=== PATIENT | female | born 1970 ===

== ENCOUNTER 2016-08-28 09:46 | Inpatient (IN) | payer BC ==
[~2016-08-28] VITALS: Ht 165.1 cm; Wt 59.0 kg
[~2016-08-28 09:46] MED LIST: AMIT75TA PO; OXYC-250 PO; VALIUM10 MG PO
[2016-08-28] MEDS ORDERED: ONDANSETRON PF 4 MG/2 ML VIAL. IV ONE (10:30)
[2016-08-28] MEDS ORDERED: FENTANYL PF 100 MCG/2 ML VIAL. IV PRN (10:30)
--- NOTE | 2016-08-28 10:32 | PHYS DOC ---
Past Medical History Past Medical History: HIV Past Surgical History: Other Additional Past Surgical Histo: esophagus Alcohol Use: None Drug Use: Marijuana Adult General Chief Complaint Chief Complaint: SHORTNESS OF BREATH HPI HPI Patient is a 46 year old female who presents with complaint of fever and cough for 1 week. Patient states her symptoms have progressively worsened during this time. Patient has history of HIV infection currently on antiretroviral therapy. Patient states she follows with Dr. Zacarias for primary care. Patient has not had any recent blood work to check her CD4 counts. Patient states that she has had productive cough of brownish sputum. Patient has been taking [id number] medications to help with her symptoms with no relief. Patient rates her pain currently is 10 out of 10 and states that it is generalized. Patient is concerned that she has pneumonia and contacted her primary physician's office who instructed her to come to the emergency department for further evaluation. Review of Systems Review of Systems Constitutional: Fever, chills, bodyaches [] Eyes: Denies change in visual acuity, redness, or eye pain [] HENT: Sore throat [] Respiratory: Productive cough, shortness of breath [] Cardiovascular: Chest pain [] GI: Nausea, denies vomiting, bloody stools or diarrhea [] : Denies dysuria or hematuria [] Musculoskeletal: Myalgias [] Integument: Denies rash or skin lesions [] Neurologic: Denies headache, focal weakness or sensory changes [] Endocrine: Denies polyuria or polydipsia [] Current Medications Current Medications Current Medications Medications (Trade) Dose Ordered Sig/Amor Start Time Stop Time Status Last Admin Dose Admin Fentanyl Citrate (Fentanyl 2ml Vial) 50 mcg PRN Q15MIN PRN 08/28/16 10:30 08/29/16 10:29 08/28/16 11:55 50 MCG Ondansetron HCl (Zofran) 4 mg 1X ONCE 08/28/16 10:30 08/28/16 10:31 DC 08/28/16 11:53 4 MG Sodium Chloride (Iv Sodium Chloride 0.9% 1000ml Bag) 1,000 ml @ 1,770 mls/hr Q34M 08/28/16 10:30 08/28/16 11:30 DC 08/28/16 13:08 1,770 MLS/HR Allergies Allergies Allergies Coded Allergies Type Severity Reaction Last Updated Verified Penicillins Allergy Intermediate itch 08/28/16 Yes Physical Exam Physical Exam Constitutional: Alert, febrile, appears ill. [] HENT: Normocephalic, atraumatic, bilateral external ears normal, oropharynx dry , erythematous, no oral exudates, nose normal. [] Eyes: PERRLA, EOMI, conjunctiva normal, no discharge. [] Neck: Normal range of motion, no tenderness, supple, no stridor. [] Cardiovascular: Tachycardia, regular rhythm, no murmur [] Lungs & Thorax: Bilateral breath sounds clear to auscultation [] Abdomen: Bowel sounds normal, soft, no tenderness, no masses, no pulsatile masses. [] Skin: Warm, dry, no erythema, no rash. [] Back: No tenderness, no CVA tenderness. [] Extremities: No tenderness, no cyanosis, no clubbing, ROM intact, no edema. [] Neurologic: Alert and oriented X 3, normal motor function, normal sensory function, no focal deficits noted. [] Current Patient Data Vital Signs Vital Signs Date Time Temp Pulse Resp B/P Pulse Ox O2 Delivery O2 Flow Rate FiO2 08/28/16 12:00 96 24 88/50 89 Room Air 08/28/16 09:59 99.2 99.2 Lab Values Laboratory Tests Test 08/28/16 10:12 08/28/16 11:00 Influenza Type A Antigen Negative (NEGATIVE) Influenza Type B Antigen Negative (NEGATIVE) White Blood Count 4.9x10^3/uL (4.0-11.0) Red Blood Count 3.26x10^6/uL (3.50-5.40) L Hemoglobin 10.0g/dL (12.0-15.5) L Hematocrit 29.5% (36.0-47.0) L Mean Corpuscular Volume 90fL (79-100) Mean Corpuscular Hemoglobin 31pg (25-35) Mean Corpuscular Hemoglobin Concent 34g/dL (31-37) Red Cell Distribution Width 13.8% (11.5-14.5) Platelet Count 144x10^3/uL (140-400) Neutrophils (%) (Auto) 86% (31-73) H Lymphocytes (%) (Auto) 6% (24-48) L Monocytes (%) (Auto) 7% (0-9) Eosinophils (%) (Auto) 0% (0-3) Basophils (%) (Auto) 0% (0-3) Neutrophils # (Auto) 4.3x10^3uL (1.8-7.7) Lymphocytes # (Auto) 0.3x10^3/uL (1.0-4.8) L Monocytes # (Auto) 0.4x10^3/uL (0.0-1.1) Eosinophils # (Auto) 0.0x10^3/uL (0.0-0.7) Basophils # (Auto) 0.0x10^3/uL (0.0-0.2) Segmented Neutrophils % 85% (35-66) H Band Neutrophils % 6% (0-9) Lymphocytes % 5% (24-48) L Monocytes % 4% (0-10) Platelet Estimate Adequate (ADEQUATE) Ovalocytes Mod Sodium Level 138mmol/L (136-145) Potassium Level 4.0mmol/L (3.5-5.1) Chloride Level 103mmol/L (98-107) Carbon Dioxide Level 25mmol/L (21-32) Anion Gap 10 (6-14) Blood Urea Nitrogen 13mg/dL (7-20) Creatinine 0.8mg/dL (0.6-1.0) Estimated GFR (Cockcroft-Gault) 76.9 BUN/Creatinine Ratio 16 (6-20) Glucose Level 101mg/dL (70-99) H Lactic Acid Level 0.7mmol/L (0.4-2.0) Calcium Level 8.6mg/dL (8.5-10.1) Total Bilirubin 0.7mg/dL (0.2-1.0) Aspartate Amino Transferase (AST) 31U/L (15-37) Alanine Aminotransferase (ALT) 16U/L (14-59) Alkaline Phosphatase 140U/L (46-116) H Total Protein 6.9g/dL (6.4-8.2) Albumin 2.8g/dL (3.4-5.0) L Albumin/Globulin Ratio 0.7 (1.0-1.7) L Procalcitonin 9.49ng/mL (0.00-0.10) H Laboratory Tests 08/28/16 11:00 Laboratory Tests 08/28/16 11:00 EKG EKG Interpreted by me: Heart rate 103, sinus tachycardia, occasional PVC, no acute ST elevations or depressions [] Radiology/Procedures Radiology/Procedures [facility] [address] [place] [address] IMAGING REPORT Signed PATIENT: ARNOLD DEUTSCH ACCOUNT: [id number] : 1970 LOCATION: ER AGE: 46 SEX: F EXAM STATUS: REG ER ORD. PHYSICIAN: SIOMARA CUEVAS MD REASON: cough, fever PROCEDURE: PORTABLE CHEST 1V Exam: AP chest radiograph History: Cough, fever. Comparison: 07/06/2016. Findings: Cardiomediastinal silhouette is within normal limits for size. Bilateral lung espinoza are free of focal infiltrate. No pleural effusion is seen. Mild accentuation of interstitial markings is similar to previous study. Impression: No acute cardiopulmonary process. DICTATED and SIGNED BY: FERMIN MEDINA MD DATE: 08/28/16 1051 CC: SIOMARA CUEVAS MD; BRAYAN ZACARIAS MD ~ [] Course & Med Decision Making Course & Med Decision Making Pertinent Labs and Imaging studies reviewed. (See chart for details) Patient started on IV fluids. Patient's pro-calcitonin was significantly elevated raising high suspicion for acute bacterial infection and sepsis. The source of patient's infection is not apparent at this time. I consult that Dr. Easton he recommended patient be started on vancomycin, Rocephin, and azithromycin for empiric treatment and agreed follows patient in hospital. I spoke with Dr. Fonseca who was on-call for Dr. Bundy and he accepted care patient in hospital. Dragon Disclaimer Dragon Disclaimer This electronic medical record was generated, in whole or in part, using a voice recognition dictation system. Departure Departure Impression: Primary Impression: Sepsis Additional Impression: HIV infection Disposition: 09 ADMITTED INPATIENT Admitting Physician: Clem Fonseca Condition: GUARDED Referrals: BRAYAN ZACARIAS MD (PCP) Problem Qualifiers Primary Impression: Sepsis Sepsis type: sepsis due to unspecified organism Qualified Code: A41.9 - Sepsis, unspecified organism SIOMARA CUEVAS MD Aug 28, 2016 10:32
--- NOTE | 2016-08-28 10:54 | RAD ---
Exam: AP chest radiograph History: Cough, fever. Comparison: 07/06/2016. Findings: Cardiomediastinal silhouette is within normal limits for size. Bilateral lung espinoza are free of focal infiltrate. No pleural effusion is seen. Mild accentuation of interstitial markings is similar to previous study. Impression: No acute cardiopulmonary process.
[2016-08-28 11:15] LABS: BASO % 0 % (0-3); EOS % 0 % (0-3); HEMATOCRIT 29.5 % (36.0-47.0); LYMPH # 0.3 x10^3/uL (1.0-4.8); LYMPH % 6 % (24-48); MEAN CORPUSCULAR HEMOGLOBIN 31 pg (25-35); MEAN CORPUSCULAR HGB CONC 34 g/dL (31-37); MEAN CORPUSCULAR VOLUME 90 fL (79-100); MONO % 7 % (0-9); NEUT % 86 % (31-73); PLATELET COUNT 144 x10^3/uL (140-400); RED BLOOD COUNT 3.26 x10^6/uL (3.50-5.40); RED CELL DISTRIBUTION WIDTH 13.8 % (11.5-14.5); WHITE BLOOD COUNT 4.9 x10^3/uL (4.0-11.0)
[2016-08-28 11:18] LABS: OBC FLU VALID
[2016-08-28 11:36] LABS: CALCIUM 8.6 mg/dL (8.5-10.1); CREATININE 0.8 mg/dL (0.6-1.0); GFR 76.9
[2016-08-28 11:45] LABS: ALBUMIN 2.8 g/dL (3.4-5.0); ALBUMIN/GLOBULIN RATIO 0.7 (1.0-1.7); TOTAL BILIRUBIN 0.7 mg/dL (0.2-1.0); TOTAL PROTEIN 6.9 g/dL (6.4-8.2)
--- NOTE | 2016-08-28 11:57 | EKG ---
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
[2016-08-28] MEDS: IV NORMAL SALINE 1000ML BAG 1,000 ML IV SCH ×4 (11:59→22:25)
[2016-08-28 12:04] LABS: PROCALCITONIN 9.49 ng/mL (0.00-0.10)
[2016-08-28 12:41] LABS: OVALOCYTES MOD; PLT ESTIMATE ADEQUATE (ADEQUATE)
[2016-08-28] MEDS ORDERED: ONDANSETRON PF 4 MG/2 ML VIAL. IV PRN (12:45)
[2016-08-28] MEDS ORDERED: VANCOMYCIN PER PHARMACY MC PRN (12:45)
[2016-08-28] MEDS ORDERED: ACETAMINOPHEN 325 MG TABLET. PO PRN (12:45)
[2016-08-28] MEDS ORDERED: CEFTRIAXONE 1GM IVPB FOR OMNI 50 ML IV ONE (13:00)
[2016-08-28] MEDS ORDERED: VANCOMYCIN 1.5 GM in IV NORMAL SALINE 500ML BAG 500 ML IV ONE (13:00)
[2016-08-28] MEDS ORDERED: AZITHROMYCIN 500 MG in IV NORMAL SALINE 250ML 250 ML IV SCH (14:00)
--- NOTE | 2016-08-28 15:46 | ACF ---
Admission Forms Criteria SEPSIS and OTHER FEBRILE ILLNESS, W/O FOCAL INFECTION Clinical Indications for Admission to Inpatient Care ( Place 'X' for any and all applicable criteria): Admission is indicated for ANY ONE of the following (1)(2)(3)(4): [ ] I. Bacteremia [X]II. Suspected or identified specific infection requiring hospitalization (eg, meningitis, endocarditis) [ ]III. Hemodynamic instability [ ]IV. Altered mental status [ ]V. Failure or unavailability of outpatient antimicrobial treatment [ ]. Hypoxemia [ ]VII. Seizures [ ]VIII. High-risk febrile neutropenia [ ]IX. Need for parenteral antibiotic in patient who is likely to abuse vascular access device (eg, injection drug user) [A](7) [ ]X. Temperature greater than 104.9 degrees F (40.5 degrees C) (oral) [ ]XI. Inpatient admission required rather than observation care because of ANY ONE of the following: [ ]1) Specific infection identified that is too severe for outpatient treatment or observation care trial [ ]2) Metabolic disorder (eg, hypoglycemia, hyperglycemia, metabolic acidosis) that is severe or persistent [ ]3) Temperature greater than 103.1 degrees F (39.5 degrees C) ( oral) that is not responsive to observation care treatment [ ]4) IV fluid to replace significant ongoing (eg, for over 24 hours) losses (> 3 L/m2 per day) [ ]5) Supplemental oxygen or respiratory treatments for over 24 hours that is performable only in acute inpatient setting [ ]6) Parenteral nutrition regimen need that must be implemented on inpatient basis [ ]7) Strict or protective (eg, laminar flow) isolation [ ]8) Other condition, treatment or monitoring requiring inpatient admission Extended stay beyond goal length of stay may be needed for(1)(3) [ ]a) Sepsis or septic shock(22) [ ]b) Positive blood cultures [ ]c) Insufficient oral intake [ ]d) High-risk febrile neutropenia(29)(30) [ ]e) Continued fever and clinical instability [ ]f) Clinically active comorbid illness (e.g,heart failure, renal failure , diabetes) The original Elenita GuerreroED01 content created by Elenita Choe has been revised. The portions of the content which have been revised are identified through the use of italic text or in bold, and Elenita Choe has neither reviewed nor approved the modified material. All other unmodified content is copyright [facility]. Please see references footnoted in the original [facility] edition 2016 Admission Criteria Met?: Yes LIN ESTRELLA Aug 28, 2016 15:46
[2016-08-28] MEDS ORDERED: OXYC30TA64 PO (19:05)
[2016-08-28] MEDS ORDERED: OXYC15TA PO (19:05)
[2016-08-28 19:30] VITALS: BP 105/62
[2016-08-28] MEDS ORDERED: OXYCODONE IR 5 MG TABLET. PO PRN (20:15)
[2016-08-28] MEDS ORDERED: AMITRIPTYLINE HCL 25 MG TABLET. PO SCH (21:00)
[2016-08-28] MEDS: DIAZEPAM 5 MG TABLET PO SCH (21:25)
[2016-08-28] MEDS: OXYCODONE ER 15 MG TAB.ER.12H. PO SCH (21:27)
[2016-08-28 23:00] VITALS: BP 77/46
[2016-08-29 03:00] VITALS: BP 84/52
[2016-08-29] MEDS: IV NORMAL SALINE 1000ML BAG 1,000 ML IV SCH (05:51)
[2016-08-29 06:47] LABS: ALBUMIN 2.3 g/dL (3.4-5.0); ALBUMIN/GLOBULIN RATIO 0.6 (1.0-1.7); CALCIUM 8.3 mg/dL (8.5-10.1); CREATININE 0.8 mg/dL (0.6-1.0); GFR 76.9; POTASSIUM 3.9 mmol/L (3.5-5.1); TOTAL BILIRUBIN 0.3 mg/dL (0.2-1.0); TOTAL PROTEIN 5.9 g/dL (6.4-8.2)
[2016-08-29 06:55] LABS: EOS % 2 % (0-3); HEMATOCRIT 26.1 % (36.0-47.0); HEMOGLOBIN 8.5 g/dL (12.0-15.5); LYMPH % 14 % (24-48); MEAN CORPUSCULAR HEMOGLOBIN 30 pg (25-35); MEAN CORPUSCULAR HGB CONC 33 g/dL (31-37); MEAN CORPUSCULAR VOLUME 93 fL (79-100); MONO % 8 % (0-9); NEUT % 75 % (31-73); PLATELET COUNT 116 x10^3/uL (140-400); RED BLOOD COUNT 2.82 x10^6/uL (3.50-5.40); RED CELL DISTRIBUTION WIDTH 14.3 % (11.5-14.5); WHITE BLOOD COUNT 2.4 x10^3/uL (4.0-11.0)
[2016-08-29 06:56] LABS: BASO % 1 % (0-3); LYMPH # 0.3 x10^3/uL (1.0-4.8)
[2016-08-29 07:30] VITALS: BP 81/41
[2016-08-29] MEDS: DIAZEPAM 5 MG TABLET PO SCH ×2 (09:00→14:55)
[2016-08-29] MEDS: OXYCODONE ER 15 MG TAB.ER.12H. PO SCH (09:00)
[2016-08-29] MEDS ORDERED: VANCOMYCIN 1 GM in IV NORMAL SALINE 250ML 250 ML IV SCH (10:00)
[2016-08-29 10:03] LABS: BILIRUBIN,URINE NEGATIVE (NEG); GLUCOSE,URINE NEGATIVE (NEG); NITRITE,URINE NEGATIVE (NEG); PH,URINE 6.5; PROTEIN,URINE 30 mg/dL (NEG-TRACE)
[2016-08-29 10:33] LABS: BACTERIA,URINE FEW /HPF (0-FEW); RBC,URINE 0 /HPF (0-2); SQUAMOUS EPITHELIAL CELL,UR MOD /LPF
[2016-08-29 11:42] LABS: BARBITURATES NEG (NEG)
[2016-08-29 11:43] LABS: BENZODIAZEPINES POS (NEG); CANNABINOIDS POS (NEG); COCAINE NEG (NEG); ETHANOL, URINE NEG (NEG); METHADONE NEG (NEG); OPIATES POS (NEG); PHENCYCLIDINE NEG (NEG)
[2016-08-29] MEDS ORDERED: AZITHROMYCIN 250 MG TABLET. PO ONE (14:00)
[2016-08-29] MEDS ORDERED: FLUCONAZOLE 200MG/100ML PREMIX 100 ML IV SCH (14:00)
[2016-08-29] MEDS ORDERED: SMZ/TMP 800/160MG TABLET. PO SCH (14:00)
[2016-08-29] MEDS ORDERED: CEFTRIAXONE SODIUM 1 GM in IV NORMAL SALINE 50ML 50 ML IV SCH (14:00)
[2016-08-29] MEDS ORDERED: AZITHROMYCIN 250 MG TABLET. PO SCH (14:00)
[2016-08-29 14:25] VITALS: BP 105/68
--- NOTE | 2016-08-29 14:45 | PDOC ---
Infectious Disease Note ROS ROS Vital Sign Vital Signs Vital Signs Date Time Temp Pulse Resp B/P Pulse Ox O2 Delivery O2 Flow Rate FiO2 08/29/16 09:00 16 Room Air 08/29/16 07:30 97.5 85 81/41 91 97.5 Physical Exam PHYSICAL EXAM GENERAL: NAD, Alert HEENT: PERRL, OC/OP - thrush and ? dentition NECK: Supple, no JVD, no LN LUNGS: Clear HEART: S1S2, no gallop, no murmur ABD: Soft, NT, no organomegaly, no rebound EXT: No edema, no cyanosis [employer] ADMINISTRATOR: Alert, oriented x 3, no focal neurologic deficit SKIN: No rash IV: ok Labs Lab Laboratory Tests Test 08/29/16 06:10 08/29/16 09:44 White Blood Count 2.4x10^3/uL (4.0-11.0) Red Blood Count 2.82x10^6/uL (3.50-5.40) Hemoglobin 8.5g/dL (12.0-15.5) Hematocrit 26.1% (36.0-47.0) Mean Corpuscular Volume 93fL (79-100) Mean Corpuscular Hemoglobin 30pg (25-35) Mean Corpuscular Hemoglobin Concent 33g/dL (31-37) Red Cell Distribution Width 14.3% (11.5-14.5) Platelet Count 116x10^3/uL (140-400) Neutrophils (%) (Auto) 75% (31-73) Lymphocytes (%) (Auto) 14% (24-48) Monocytes (%) (Auto) 8% (0-9) Eosinophils (%) (Auto) 2% (0-3) Basophils (%) (Auto) 1% (0-3) Neutrophils # (Auto) 1.8x10^3uL (1.8-7.7) Lymphocytes # (Auto) 0.3x10^3/uL (1.0-4.8) Monocytes # (Auto) 0.2x10^3/uL (0.0-1.1) Eosinophils # (Auto) 0.1x10^3/uL (0.0-0.7) Basophils # (Auto) 0.0x10^3/uL (0.0-0.2) Sodium Level 143mmol/L (136-145) Potassium Level 3.9mmol/L (3.5-5.1) Chloride Level 109mmol/L (98-107) Carbon Dioxide Level 25mmol/L (21-32) Anion Gap 9 (6-14) Blood Urea Nitrogen 11mg/dL (7-20) Creatinine 0.8mg/dL (0.6-1.0) Estimated GFR (Cockcroft-Gault) 76.9 BUN/Creatinine Ratio 14 (6-20) Glucose Level 88mg/dL (70-99) Calcium Level 8.3mg/dL (8.5-10.1) Total Bilirubin 0.3mg/dL (0.2-1.0) Aspartate Amino Transf (AST/SGOT) 38U/L (15-37) Alanine Aminotransferase (ALT/SGPT) 20U/L (14-59) Alkaline Phosphatase 185U/L (46-116) Total Protein 5.9g/dL (6.4-8.2) Albumin 2.3g/dL (3.4-5.0) Albumin/Globulin Ratio 0.6 (1.0-1.7) Urine Collection Type Unknown Urine Color Yellow Urine Clarity Clear Urine pH 6.5 Urine Specific [place] 1.020 Urine Protein 30mg/dL (NEG-TRACE) Urine Glucose (UA) Negativemg/dL (NEG) Urine Ketones (Stick) Negativemg/dL (NEG) Urine Blood Negative (NEG) Urine Nitrite Negative (NEG) Urine Bilirubin Negative (NEG) Urine Urobilinogen Dipstick 2.0mg/dL (0.2 mg/dL) Urine Leukocyte Esterase Negative (NEG) Urine RBC 0/HPF (0-2) Urine WBC 1-4/HPF (0-4) Urine Squamous Epithelial Cells Mod/LPF Urine Bacteria Few/HPF (0-FEW) Urine Hyaline Casts Few/HPF Urine Mucus Slight/LPF Urine Opiates Screen Pos (NEG) Urine Methadone Screen Neg (NEG) Urine Barbiturates Neg (NEG) Urine Phencyclidine Screen Neg (NEG) Urine Amphetamine/Methamphetamine Pos (NEG) Urine Benzodiazepines Screen Pos (NEG) Urine Cocaine Screen Neg (NEG) Urine Cannabinoids Screen Pos (NEG) Urine Ethyl Alcohol Neg (NEG) Objective Assessment Sepsis - POA Fever HIV takes Isentress/Truvada - likely has AIDS. Admits noncompliance. Explained risks of Thrush Leukopenia Plan Plan of Care Computer down earlier - was unable to see chart Cont Vanc/Rocephin/Azithromycin Add Bactrim daily Fluconazole F/u blood cults Obtain VL/Genotype/ CD 4 ECHO Labs in am ABRAHAM RÍOS MD Aug 29, 2016 14:45
[2016-08-29] MEDS ORDERED: NYSTATIN 100,000 UNITS/ML 5 ML ORAL.SUSP. SWSW SCH (17:00)
--- NOTE | 2016-08-30 14:39 | CONS ---
DATE OF CONSULTATION: 08/29/2016 ROOM: 510 REQUESTING PHYSICIAN: ____. REASON FOR CONSULTATION: HIV disease. HISTORY OF PRESENT ILLNESS: This is a 46-year-old female with a known history of HIV disease, she states for approximately 12 years. She is taking Isentress as well as Truvada. She does admit to being somewhat noncompliant with her medications, cannot remember her last HIV viral load and she could not tell me who was prescribing her medicines, although she is followed by Dr. Bundy in the outpatient setting. She presented to [facility] Emergency Room on 08/28 with complaints of fever and cough x 1 week. She has had some mild sore throat. No gross sinus drainage, but she has some productive brown sputum. No dysuria, frequency, or urgency. No nausea, vomiting, diarrhea or cramps. No falls or trauma. She was placed on Rocephin and vancomycin and I recommended the addition of azithromycin last evening. Currently, she states she is feeling somewhat better, although she has been leaving her room for periods of time and it was concerning she may have left the hospital for several hours last evening. This morning, she had to be paged back to her room. She has gone with IV pole. She had been n.p.o., but she was found down in the cafeteria. Currently, she is lying in bed and is grateful for a Coke. PAST MEDICAL HISTORY: Positive for HIV disease, chronic pain, history of thrush. PAST SURGICAL HISTORY: Positive for surgery of her esophagus. REVIEW OF SYSTEMS: Otherwise negative except for what is mentioned above. ALLERGIES: LISTED PENICILLIN CAUSED HIVES. SOCIAL HISTORY: She has a history of tobacco and drug use. FAMILY HISTORY: Noncontributory. CURRENT MEDICATIONS: Included Rocephin, vancomycin and azithromycin. PHYSICAL EXAMINATION: VITAL SIGNS: Temperature on presentation was 101.3, at the time of my evaluation was 97.5; pulse 85; respirations 16; blood pressure 81/41. CONSTITUTIONAL: She was lying in bed. She was in no acute distress. HEENT: Her pupils were equal and reactive with normal conjunctivae. Oral cavity, pharynx, she has thrush. NECK: Supple without JVD. LUNGS: Decreased in the bases. No wheeze. HEART: S1, S2. No murmur. ABDOMEN: Soft, nontender, nondistended with positive bowel sounds. EXTREMITIES: No clubbing, cyanosis or gross edema. SKIN: Without generalized signs of rash. She did have some tattoos. No joint swelling. NEUROLOGIC: She was alert, nonfocal. PSYCHIATRIC: Affect was somewhat flat. LABORATORY VALUES: White count at the time of presentation 4.9 with 6% bands, currently at 2.4 with hemoglobin 8.5, platelets of 116, neutrophils of 75, lymphs of 14. Glucose of 88, alkaline phosphatase 185, AST 38, albumin of 2.3. Procalcitonin was elevated at 9.49. Urinalysis, moderate squamous cells, few bacteria. Leukocyte esterase and nitrite were negative. Influenza screen was negative. Last quantization viral loads in 08/2014 was 31,700. Chest x-ray was performed, did not show any acute cardiopulmonary process. Her blood cultures were positive for gram-positive cocci in 2/3 bottles so far in 2 sets. IMPRESSION: 1. Sepsis present on admission. 2. Fever. 3. Human immunodeficiency virus, on [facility] and Truvada, most likely has acquired immunodeficiency syndrome. She admits to noncompliance and also has thrush. I did explain the risks of to her if she does not stay compliant with her medications. 4. Thrush. 5. Leukopenia. RECOMMENDATIONS: Continue vancomycin, Rocephin, continue azithromycin that may aid mycobacterium prophylaxis, apply daily Bactrim-DS and fluconazole. Follow up the blood cultures, obtain an echo. Given the positive blood cultures, we will obtain a viral load, the HIV genotype and CD4 counts. We will follow up labs in the morning. Thank you, ____ for asking us to participate in this patient's care. Should you have further questions or concerns, please call. ABRAHAM RÍOS MD DR: MAYUR/paula JOB#: [id number] / [id number]
--- NOTE | 2016-08-30 23:38 | CARD ---
APPROVED REPORT EXAM: Two-dimensional and M-mode echocardiogram with Doppler and color Doppler. Other Information Quality : Good Rhythm : NSR INDICATION Sepsis, HIV LEFT VENTRICLE The left ventricle is normal size. There is normal left ventricular wall thickness. The left ventricu lar systolic function is mildly decreased. The Ejection Fraction is 45-50%.%. There is normal LV segm ental wall motion. The left ventricular diastolic function and filling is normal . RIGHT VENTRICLE The right ventricle is normal size. There is normal right ventricular wall thickness. The right ventr icular systolic function is normal. AORTIC VALVE The aortic valve is mildly sclerotic. The aortic valve is trileaflet. Doppler and Color Flow revealed no significant aortic regurgitation. There is no significant aortic valvular stenosis. MITRAL VALVE Mitral annular calcification is mild. The mitral valve leaflets are thickened. There is no evidence o f mitral valve prolapse. There is no mitral valve stenosis. Doppler and Color Flow revealed moderate mitral regurgitation. TRICUSPID VALVE Doppler and Color Flow revealed trace tricuspid regurgitation. The pulmonary artery systolic pressure is estimated at 34 mmHg. There is mild pulmonary hypertension. PULMONIC VALVE Doppler and Color Flow revealed mild pulmonic valvular regurgitation. There is no pulmonic valvular s tenosis. GREAT VESSELS The aortic root is normal in size. The ascending aorta is normal in size. The pulmonary artery is nor mal. The IVC is normal in size and collapses >50% with inspiration. PERICARDIAL EFFUSION There is no evidence of significant pericardial effusion. Critical Notification Critical Value: No <Conclusion> The left ventricle is normal size. There is normal left ventricular wall thickness. The left ventricular systolic function is mildly decreased. The Ejection Fraction is 45-50%.%. The left ventricular diastolic function and filling is normal . There is no evidence of significant pericardial effusion. There is no mitral valve stenosis. Doppler and Color Flow revealed moderate mitral regurgitation. The left atrium is of a normal size There is no significant aortic valvular stenosis or regurgitation. The right ventricle is of a normal size with normal systolic function Doppler and Color Flow revealed trace tricuspid regurgitation. The pulmonary artery systolic pressure is estimated at 34 mmHg. There is mild pulmonary hypertension. Doppler and Color Flow revealed mild pulmonic valvular regurgitation.
== END 2016-08-29 19:58 | disposition left against medical advice (07) | DRG 976 ==
LOC: ER 09:46 → 5 NORTH 12:04
PROVIDERS: ADMIT Internal Medicine; ATTEND Internal Medicine
DX: A41.9 Sepsis, unspecified organism (principal); B20 Human immunodeficiency virus [HIV] disease; B37.9 Candidiasis, unspecified; G89.29 Other chronic pain; Z88.0 Allergy status to penicillin; J02.9 Acute pharyngitis, unspecified; F12.90 Cannabis use, unspecified, uncomplicated; Z79.899 Other long term (current) drug therapy; Z88.8 Allergy status to other drugs, medicaments and biological substances; Z87.891 Personal history of nicotine dependence; Z91.14 Patient's other noncompliance with medication regimen; Z91.19 Patient's noncompliance with other medical treatment and regimen
CPT/HCPCS: 36415; 71010; 80053; 81001; 83605; 84145; 85007; 85027; 87040; 87205; 87536; 87804; 93005; 93306; 96365; 96367; 96375; G0481; J0456; J0690; J0696; J1450; J2405; J3010; J3370; J7030; J7040; J7050; Q0144; 99285-25